=== PATIENT | female | born 1990 | race Two or more races ===

== ENCOUNTER 2021-02-19 19:14 | Emergency (ER) | payer MEDICAID, OTHER ==
[~2021-02-19] VITALS: Ht 165.1 cm; Wt 70.3 kg
[2021-02-19] MEDS ORDERED: ACETAMINOPHEN 500 MG TAB PO ONE (22:15)
[2021-02-19] MEDS ORDERED: KETOROLAC TROMETH 30 MG/ML 1ML VIAL IV ONE (22:15)
[2021-02-19 23:18] LABS: Basophils # (auto) 0 10 ^3/uL (0-0.2); Basophils % (auto) 0.6 % (0.0-2.0); Eosinophils # (auto) 0.1 10 ^3/uL (0-0.8); Eosinophils % (auto) 2.2 % (0.0-7.0); Hematocrit 38.2 % (36.0-46.0); Hemoglobin 12.8 g/dL (12.2-16.2); Lymphocytes # (auto) 1.3 10 ^3/uL (0.4-5.4); Lymphocytes % (auto) 19.4 % (10.0-50.0); Mean Corpuscular Hemoglobin 30.5 pg (28.0-32.0); Mean Corpuscular Hgb Conc. 33.6 g/dL (32.0-36.0); Monocytes # (auto) 0.7 10 ^3/uL (0-1.3); Monocytes % (auto) 10.6 % (0.0-12.0); Neutrophils # (auto) 4.5 10 ^3/uL (1.6-8.6); Neutrophils % (auto) 67.2 % (37.0-80.0); Nucleated Red Blood Cells % 0.1 %; Red Cell Distribution Width 12.9 % (11.8-14.3); White Blood Cell 6.7 10^3/uL (4.4-10.8)
[2021-02-19 23:43] LABS: Albumin 3.5 g/dL (3.4-5.0); BUN/Creatinine Ratio 13.6; Calcium 8.4 mg/dL (8.5-10.1); Potassium 3.8 mmol/L (3.5-5.1)
[2021-02-19 23:45] LABS: Bilirubin, Total 0.4 mg/dL (0.2-1.0)
[2021-02-19] MEDS ORDERED: ONDANSETRON ODT 4 MG TAB PO ONE (23:45)
[2021-02-19] MEDS ORDERED: MORPHINE SULFATE INJECTION 2 MG/ML SYRG IV ONE (23:45)
[2021-02-19] MEDS ORDERED: ALPRAZolam 0.25 MG TAB PO ONE (23:45)
[2021-02-20 00:41] LABS: Urine Bacteria FEW /hpf (None Seen); Urine Blood TRACE /uL (Negative); Urine Specific Gravity 1.017 (1.001-1.035); Urine WBC 45 /hpf (0 - 5)
[2021-02-20 01:30] VITALS: BP 98/60
== END 2021-02-20 02:33 | disposition home or self-care (01) ==
LOC: EDBD 19:14 → ER 19:14
DX: M79.10 Myalgia, unspecified site (principal); M54.16 Radiculopathy, lumbar region; M51.26 Other intervertebral disc displacement, lumbar region; N39.0 Urinary tract infection, site not specified
CPT/HCPCS: 36415; 72100; 72131; 80053; 81001; 84702; 85025; 96374; 96375; 99285; J1885; J2270; Q0162

== ENCOUNTER 2023-01-13 09:40 | Inpatient (IN) | payer MEDICAID ==
[~2023-01-13] VITALS: Ht 165.1 cm; Wt 65.9 kg
[2023-01-13] MEDS ORDERED: IOHEXOL 300 MG/ML 100ML BOTTLE IJ ONE (09:51)
[2023-01-13] MEDS ORDERED: IOHEXOL 350 MG/ML 100ML IJ ONE (09:53)
[2023-01-13] MEDS ORDERED: SODIUM CHLORIDE 0.9% 1,000 ML IVB ONE (10:00)
[2023-01-13 10:38] LABS: Basophils # (auto) 0 10 ^3/uL (0-0.2); Basophils % (auto) 0.2 % (0.0-2.0); Eosinophils # (auto) 0.1 10 ^3/uL (0-0.8); Eosinophils % (auto) 0.4 % (0.0-7.0); Hematocrit 44.2 % (36.0-46.0); Hemoglobin 14.4 g/dL (12.2-16.2); Lymphocytes # (auto) 1.5 10 ^3/uL (0.4-5.4); Lymphocytes % (auto) 6.1 % (10.0-50.0); Mean Corpuscular Hemoglobin 30.2 pg (28.0-32.0); Mean Corpuscular Hgb Conc. 32.6 g/dL (32.0-36.0); Mean Corpuscular Volume 92.6 fL (80.0-100.0); Monocytes # (auto) 0.7 10 ^3/uL (0-1.3); Monocytes % (auto) 2.9 % (0.0-12.0); Neutrophils # (auto) 22.1 10 ^3/uL (1.6-8.6); Neutrophils % (auto) 90.4 % (37.0-80.0); Nucleated Red Blood Cells % 0.1 %; Red Blood Cells 4.78 10^6/uL (4.0-5.20); Red Cell Distribution Width 13.8 % (11.8-14.3); White Blood Cell 24.5 10^3/uL (4.4-10.8)
[2023-01-13] MEDS ORDERED: DIPHENOXYLATE W/ATROPINE 2.5 MG TAB PO ONE (10:45)
[2023-01-13 11:02] LABS: Lactic Acid w/Reflex 3.3 mmol/L (0.4-2.0); Potassium 4.3 mmol/L (3.5-5.1)
[2023-01-13 11:09] LABS: Albumin 4.2 g/dL (3.4-5.0); BUN/Creatinine Ratio 14.3 (10.0-20.0); Bilirubin, Total 1.4 mg/dL (0.2-1.0); Calcium 10.2 mg/dL (8.5-10.1); Total Protein 7.9 g/dL (6.4-8.2)
[2023-01-13 11:39] LABS: Urine Bacteria NONE SEEN /hpf (None Seen); Urine Blood 1+ /uL (Negative); Urine Mucus FEW (None Seen); Urine WBC 1 /hpf (0 - 5)
[2023-01-13 11:44] LABS: Urine Specific Gravity > 1.050 (1.001-1.035)
[2023-01-13] MEDS ORDERED: MORPHINE SULFATE INJ 2 MG/ml SYRG IV PRN (13:30)
[2023-01-13] MEDS ORDERED: SODIUM CHLORIDE 0.9% 2,000 ML IV ONE (13:30)
[2023-01-13] MEDS ORDERED: ONDANSETRON HCL 4 MG/2 ML VIAL IV PRN (13:30)
[2023-01-13] MEDS: SODIUM CHLORIDE 0.9% 1,000 ML IV SCH ×2 (13:30→22:00)
[2023-01-13] MEDS: metroNIDAZOLE 500MG/100ML 100 ML IV SCH ×2 (15:16→21:59)
[2023-01-13 17:08] VITALS: PULSE 83; RESP 18; O2SAT 97
[2023-01-13 19:30] VITALS: PULSE 65; PULSE 90; RESP 12; RESP 15; O2SAT 100; O2SAT 99
[2023-01-13] MEDS ORDERED: BUPR150T8 PO (20:27)
[2023-01-14 05:00] VITALS: BP 91/54; PULSE 67; RESP 18; TEMP 98.4; O2SAT 100
[2023-01-14] MEDS: metroNIDAZOLE 500MG/100ML 100 ML IV SCH ×3 (05:12→22:45)
[2023-01-14] MEDS: SODIUM CHLORIDE 0.9% 1,000 ML IV SCH ×2 (06:10→18:30)
[2023-01-14 07:11] LABS: Basophils # (auto) 0 10 ^3/uL (0-0.2); Basophils % (auto) 0.2 % (0.0-2.0); Eosinophils # (auto) 0.2 10 ^3/uL (0-0.8); Eosinophils % (auto) 1.8 % (0.0-7.0); Hematocrit 32.6 % (36.0-46.0); Hemoglobin 10.7 g/dL (12.2-16.2); Lymphocytes # (auto) 1.2 10 ^3/uL (0.4-5.4); Lymphocytes % (auto) 12.9 % (10.0-50.0); Mean Corpuscular Hemoglobin 31.1 pg (28.0-32.0); Mean Corpuscular Hgb Conc. 32.9 g/dL (32.0-36.0); Mean Corpuscular Volume 94.5 fL (80.0-100.0); Monocytes # (auto) 0.5 10 ^3/uL (0-1.3); Monocytes % (auto) 5.6 % (0.0-12.0); Neutrophils # (auto) 7.5 10 ^3/uL (1.6-8.6); Neutrophils % (auto) 79.5 % (37.0-80.0); Red Blood Cells 3.45 10^6/uL (4.0-5.20); Red Cell Distribution Width 13.3 % (11.8-14.3); White Blood Cell 9.4 10^3/uL (4.4-10.8)
[2023-01-14 07:41] LABS: Potassium 3.6 mmol/L (3.5-5.1)
[2023-01-14 07:46] LABS: Albumin 2.9 g/dL (3.4-5.0); BUN/Creatinine Ratio 10.1 (10.0-20.0); Calcium 7.3 mg/dL (8.5-10.1)
[2023-01-14 07:48] LABS: Bilirubin, Total 0.8 mg/dL (0.2-1.0); Total Protein 5.4 g/dL (6.4-8.2)
[2023-01-14] MEDS: hydrOXYzine 25 MG TAB or CAP PO PRN ×2 (07:53→21:04)
[2023-01-14 08:00] VITALS: BP 100/71; PULSE 64; RESP 16; TEMP 97.4; O2SAT 98
[2023-01-14 09:00] VITALS: BP 100/71; PULSE 64; RESP 16; TEMP 97.4; O2SAT 98
[2023-01-14] MEDS: PANTOPRAZOLE 40 MG/10 ML VIAL INJ IV SCH (09:48)
[2023-01-14] MEDS: predniSONE 5 MG TAB PO SCH (09:48)
[2023-01-14 13:00] VITALS: BP 101/65; PULSE 61; RESP 97; TEMP 97.5; O2SAT 97
[2023-01-14 17:00] VITALS: BP 100/69; PULSE 68; RESP 16; TEMP 97.1; O2SAT 100
[2023-01-14] MEDS: FLORASTOR (S. BOULARDII) 250 MG CAP PO SCH (21:04)
[2023-01-14 22:00] VITALS: BP 115/71; PULSE 64; RESP 18; TEMP 98; O2SAT 100
[2023-01-15 05:00] VITALS: BP 113/67; PULSE 61; RESP 18; TEMP 97.9; O2SAT 100
[2023-01-15 05:26] LABS: Potassium 3.5 mmol/L (3.5-5.1)
[2023-01-15 05:30] LABS: BUN/Creatinine Ratio 13.9 (10.0-20.0); Calcium 7.7 mg/dL (8.5-10.1); Magnesium 1.7 mg/dL (1.6-2.6)
[2023-01-15 05:33] LABS: Basophils # (auto) 0 10 ^3/uL (0-0.2); Basophils % (auto) 0.3 % (0.0-2.0); Eosinophils # (auto) 0.2 10 ^3/uL (0-0.8); Eosinophils % (auto) 2.3 % (0.0-7.0); Hematocrit 33.2 % (36.0-46.0); Lymphocytes % (auto) 28.4 % (10.0-50.0); Mean Corpuscular Hemoglobin 31.3 pg (28.0-32.0); Mean Corpuscular Hgb Conc. 33.3 g/dL (32.0-36.0); Mean Corpuscular Volume 94.2 fL (80.0-100.0); Monocytes # (auto) 0.7 10 ^3/uL (0-1.3); Neutrophils # (auto) 4.3 10 ^3/uL (1.6-8.6); Nucleated Red Blood Cells % 0.1 %; Red Blood Cells 3.52 10^6/uL (4.0-5.20); Red Cell Distribution Width 13.4 % (11.8-14.3); White Blood Cell 7.2 10^3/uL (4.4-10.8)
[2023-01-15 05:40] LABS: Bilirubin, Total 0.3 mg/dL (0.2-1.0); Total Protein 5.7 g/dL (6.4-8.2)
[2023-01-15] MEDS: metroNIDAZOLE 500MG/100ML 100 ML IV SCH ×3 (06:53→21:51)
[2023-01-15 08:00] VITALS: PULSE 75; RESP 18; O2SAT 97
[2023-01-15 09:00] VITALS: BP 114/73; PULSE 75; RESP 16; TEMP 97.8; O2SAT 100
[2023-01-15] MEDS: predniSONE 5 MG TAB PO SCH (09:37)
[2023-01-15] MEDS: PANTOPRAZOLE 40 MG/10 ML VIAL INJ IV SCH (09:37)
[2023-01-15] MEDS: FLORASTOR (S. BOULARDII) 250 MG CAP PO SCH ×2 (09:37→21:51)
[2023-01-15] MEDS: hydrOXYzine 25 MG TAB or CAP PO PRN (09:37)
[2023-01-15] MEDS: SODIUM CHLORIDE 0.9% 1,000 ML IV SCH (12:58)
[2023-01-15 13:00] VITALS: BP 105/64; PULSE 71; RESP 16; TEMP 97.7; O2SAT 100
[2023-01-15 17:00] VITALS: BP 103/73; PULSE 67; RESP 16; TEMP 96.7; O2SAT 100
[2023-01-15 22:00] VITALS: BP 104/75; PULSE 75; RESP 22; TEMP 98.3; O2SAT 100
[2023-01-16 05:23] VITALS: BP 114/77; PULSE 67; RESP 22; TEMP 98.2; O2SAT 100
[2023-01-16] MEDS: SODIUM CHLORIDE 0.9% 1,000 ML IV SCH ×2 (05:37→14:10)
[2023-01-16] MEDS: metroNIDAZOLE 500MG/100ML 100 ML IV SCH ×2 (05:37→14:00)
[2023-01-16 06:16] LABS: Potassium 3.3 mmol/L (3.5-5.1)
[2023-01-16 06:33] LABS: BUN/Creatinine Ratio 12.9 (10.0-20.0); Calcium 8.5 mg/dL (8.5-10.1); Magnesium 1.9 mg/dL (1.6-2.6)
[2023-01-16 08:00] VITALS: BP 88/52; PULSE 58; PULSE 88; RESP 20; TEMP 97.9; O2SAT 100
[2023-01-16 09:09] VITALS: BP 103/70; PULSE 73
[2023-01-16] MEDS: predniSONE 5 MG TAB PO SCH (10:00)
[2023-01-16] MEDS ORDERED: POTASSIUM CHL 20 Meq TABLET PO ONE (10:00)
[2023-01-16] MEDS ORDERED: BUPROPION HCL 150 MG PO SCH (10:00)
[2023-01-16] MEDS: FLORASTOR (S. BOULARDII) 250 MG CAP PO SCH (10:05)
[2023-01-16] MEDS: PANTOPRAZOLE 40 MG/10 ML VIAL INJ IV SCH (10:05)
[2023-01-16] MEDS ORDERED: FLUCONAZOLE 100 MG TAB PO ONE (11:30)
[2023-01-16 12:50] VITALS: BP 103/70; PULSE 88; RESP 20; TEMP 36.6; O2SAT 100
== END 2023-01-16 14:40 | disposition home or self-care (01) | DRG 249 ==
LOC: ER 09:40 → EDBD 09:40 → OVERFLOW 13:41 → WEST WING 20:40
PROVIDERS: ADMIT Internal Medicine
DX: K52.9 Noninfective gastroenteritis and colitis, unspecified (principal); E44.0 Moderate protein-calorie malnutrition; E86.0 Dehydration; E86.1 Hypovolemia; R06.03 Acute respiratory distress; L43.9 Lichen planus, unspecified; F41.9 Anxiety disorder, unspecified; F31.9 Bipolar disorder, unspecified; M54.50 Low back pain, unspecified; R55 Syncope and collapse; R61 Generalized hyperhidrosis; R73.9 Hyperglycemia, unspecified; Z98.891 History of uterine scar from previous surgery; Z68.24 Body mass index [BMI] 24.0-24.9, adult
CPT/HCPCS: 36415; 71260; 74177; 80048; 80053; 81001; 82962; 83036; 83605; 83690; 83735; 84443; 85025; 85048; 86850; 86900; 86901; 87040; 87177; 87493; 93005; 96361; 96374; 96375; 99291; C9113; G0378; J2405; J3490

== ENCOUNTER → 2023-08-03 09:05 | Emergency (ER) | payer MEDICAID ==
[~2023-08-03 09:05] MED LIST: BUPR150T8 PO
== END | disposition left against medical advice (07) ==
LOC: ER 09:05
DX: H57.11 Ocular pain, right eye (principal); Z53.21 Procedure and treatment not carried out due to patient leaving prior to being seen by health care provider